=== PATIENT | female | born 2000 ===

== ENCOUNTER 2025-06-04 18:50 | Emergency (ER) | payer OTHER ==
[~2025-06-04] VITALS: Ht 172.7 cm; Wt 65.8 kg
[2025-06-04] MEDS ORDERED: PROZAC10 MG PO (19:46)
[2025-06-04] MEDS ORDERED: KETOROLAC TROMETHAMINE 30 MG VIAL IM ONE (20:00)
== END 2025-06-04 22:19 | disposition home or self-care (01) ==
LOC: ER 18:50
DX: S93.402A Sprain of unspecified ligament of left ankle, initial encounter (principal); W18.39XA Other fall on same level, initial encounter; Y93.89 Activity, other specified; Y92.89 Other specified places as the place of occurrence of the external cause